=== PATIENT | male | born 1990 | race Caucasian/White ===

== ENCOUNTER 2019-06-19 09:44 | Inpatient (IN) ==
[2019-06-19] MEDS ORDERED: NS 1,000 ML IV ONE ×2 (10:25→14:05)
--- NOTE | 2019-06-19 10:25 | EKG Report ---
Test Performed on : 06/19/2019 09:57:00 AM Test Reason : tachycardia Blood Pressure : / mmHG Vent. Rate : 107 BPM Atrial Rate : 107 BPM P-R Int : 152 ms QRS Dur : 060 ms QT Int : 302 ms P-R-T Axes : 022 032 041 degrees QTc Int : 403 ms Sinus tachycardia. Otherwise normal ECG No previous ECGs available Unconfirmed Result
[2019-06-19 10:59] LABS: BASO# 0.03 X1000 (0.0-0.2); BASO% 0.3 % (0.0-0.8); EOS# 0.47 X1000 (0.0-0.7); EOS% 4.5 % (0.0-10.0); HEMATOCRIT 46.5 % (42.0-52.0); HEMOGLOBIN 16.2 g/dL (14.0-18.0); IMM GRAN# 0.04 X1000 (0.0-0.04); IMM GRAN% 0.4 % (0.0-0.5); LYMPH# 3.02 X1000 (1.2-3.4); LYMPH% 28.8 % (20.5-51.1); MCH 27.6 PG (27-31); MCHC 34.8 g/dL (33-37); MCV 79.4 FL (81-99); MONO# 0.76 X1000 (0.11-0.59); MONO% 7.3 % (1.7-9.3); MPV 10.6 FL (7.4-10.4); NEUT# 6.16 X1000 (1.4-6.5); NEUT% 58.7 % (42.2-75.2); PLT 229 X1000 (130-400); RBC 5.86 XMIL (4.7-6.1); RDW 13.2 % (11.5-14.5); WBC 10.48 X1000 (4.8-10.8)
--- NOTE | 2019-06-19 11:09 | Diag Imaging Result Doc PS360 ---
EXAM: CHEST-2 VIEWS HISTORY: Shortness of breath TECHNIQUE: Two views COMPARISON: None. FINDINGS: The lungs are well expanded. The heart is not enlarged. The vessels are not distended. There are no infiltrates. No pleural effusions. IMPRESSION: No acute abnormality. Electronically signed by Sundar Randall 06/19/2019 11:07 AM
[2019-06-19 11:51] LABS: AGAP 15; ALB/GLOB RATIO 1.8; ALBUMIN 4.7 g/dL (3.5-5.0); ALKALINE PHOSPHATASE 101 U/L (32-122); BUN 15 mg/dL (8-22); CALCIUM 10.4 mg/dL (8.8-10.2); CHLORIDE 96 mmol/L (98-107); COSMO 280; CREATININE 1.2 mg/dL (0.7-1.2); ESTIMATED GFR > 60; GLUCOSE 100 mg/dL (70-104); GOT 81 U/L (10-34); GPT 172 U/L (10-44); SODIUM 140 mmol/L (136-145); TCO2 29 mmol/L (25-35); TOTAL BILIRUBIN 0.56 mg/dL (0.20-1.00); TOTAL PROTEIN 7.3 g/dL (6.3-8.3)
--- NOTE | 2019-06-19 15:22 | PROVIDER DOCUMENTATION ---
This chart was entered by Jacey Huitron Scribe, acting as scribe for Keanu Weston MD. HPI-Chest Pain - General Chief Complaint: Chest Pain Stated Complaint: CP Time Seen by Provider: 06/19/19 10:09 Source: patient Allergies/Adverse Reactions: Patient Allergies Allergy/AdvReac Type Severity Reaction Status Date / Time Penicillins Allergy Unknown Verified 06/19/19 10:51 Home Medications: Home Medication List Medication Instructions Recorded Confirmed Last Taken Type NK [No Home Medications] 06/19/19 06/19/19 Unknown History - History of Present Illness-CP Nature of Presenting Problem: Patient is a 28 year old male who presents with chest pain. States shortness of breath, dizziness and nausea with chest pain. Reports symptoms started this morning at 0800. Denies abdominal pain, vomiting and sweats. History of HTN but does not take medications. Family history of heart disease and [place]. Denies history of DVT. No recent travel or surgery. Location: reports: central Chest Pain Radiation: reports: epigastric Quality of Pain: reports: pressure Severity in ED: mild Onset/Duration: this morning (0800) Timing: intermittent Associated Symptoms: reports: dizziness, nausea, shortness of breath. denies: diaphoresis, fever/chills Review of Systems - Adult - REVIEW OF SYSTEMS - ADULT Constitutional: reports: no symptoms reported. denies: fever Eyes: reports: no symptoms reported. denies: decreased vision, blurred vision, double vision Ears, Nose, Mouth & Throat: reports: no symptoms reported. denies: throat pain Cardiovascular: reports: see HPI, chest pain Respiratory: reports: cough, shortness of breath Gastrointestinal: reports: see HPI, nausea. denies: abdominal pain, vomiting Genitourinary: reports: no symptoms reported. denies: flank pain Musculoskeletal: reports: no symptoms reported. denies: back pain Integumentary: reports: no symptoms reported Neurological: reports: no symptoms reported. denies: headache/migraines Psychiatric: reports: no symptoms reported. denies: alcohol/drug dependence Endocrine: reports: no symptoms reported Hematologic/Lymphatic: reports: no symptoms reported. denies: other (no bleeding) Allergic/Immunologic: reports: no symptoms reported, other (no swelling) Past History - Adult - PAST MEDICAL HISTORY-ADULT Review of Records: reports: Old Records Reviewed (no records noted) Major Childhood Illnesses: reports: denies history Cardiovascular: reports: HTN Respiratory: reports: denies history Gastrointestinal: reports: denies history Obstetrical/Gynecological: reports: denies history Genitourinary: reports: denies history Musculoskeletal: reports: denies history Neurological: reports: Seizures/Epilepsy Endocrine/Immune: reports: denies history Other Conditions: reports: denies history - PRIOR SURGERIES/PROCEDURES Surgical/Procedure History: reports: cholecystectomy - IMMUNIZATION STATUS Childhood Immunizations: See Nurse Assessment Flu Vaccine: See Nurse Assessment - FAMILY HISTORY Family History: reviewed, not pertinent - SOCIAL HISTORY Smoking: denies Substance Use: denies Alcohol Use Frequency: never Physical Exam-General - PHYSICAL EXAM-ADULT Initial Vital Signs Reviewed: Yes - CONSTITUTIONAL General Appearance: appears well, alert, no apparent distress. negative: anxious, lethargic - EYES Eyes: negative: conjuctival exudate, sclera injected, scleral icterus - HEAD, EARS, NOSE, MOUTH & THROAT HENMT: normocephalic/atraumatic, moist mucous membranes, pharynx normal. negative: hearing deficit, pharyngeal erythema - NECK Neck: normal inspection. negative: other (mass) - RESPIRATORY Respiratory: lungs clear, no respiratory distress. negative: crackles, stridor, wheezing - CARDIOVASCULAR Cardiovascular: no gallop, tachycardia. negative: systolic murmur - GASTROINTESTINAL (ABDOMEN) Abdominal Exam: normal bowel sounds, non tender, soft. negative: guarding, rigid - MUSCULOSKELETAL Extremity: non-tender, normal inspection. negative: pedal edema - SKIN Integumentary: normal color, warm/dry. negative: diaphoresis - NEUROLOGIC Neurologic: grossly normal. negative: aphasia - PSYCHIATRIC Psych/Mental Status: normal mood/affect, normal thought content, normal thought process - HEART Score HEART Score: History: Moderately Suspicious HEART Score: ECG: Normal HEART Score: Age: < or = 45 Years HEART Score: Risk Factors for Atherosclerotic Disease: > or = 3 Risk Factors or History of Atherosclerotic Disease HEART Score: Troponin: < or = Normal Limit Total HEART Score:: 3 Progress - PLAN OF CARE/RESULTS Progress/Plan/Lab Results: Vital Signs - 8 hr 06/19/19 09:52 06/19/19 10:11 06/19/19 11:00 Temperature 98.1 F Pulse Rate 112 H 123 H 102 H Respiratory Rate 18 21 16 Blood Pressure 142/96 137/90 143/85 O2 Sat by Pulse Oximetry 96 100 100 06/19/19 11:30 06/19/19 12:00 06/19/19 12:30 Temperature Pulse Rate 91 H 115 H 99 H Respiratory Rate 20 18 18 Blood Pressure 138/81 134/89 142/89 O2 Sat by Pulse Oximetry 98 100 100 06/19/19 13:00 06/19/19 13:30 06/19/19 14:00 Temperature Pulse Rate 95 H 101 H 104 H Respiratory Rate 20 21 19 Blood Pressure 131/73 134/91 140/78 O2 Sat by Pulse Oximetry 97 100 98 06/19/19 10:36 Influenza Screen - Final Nasopharyngeal Laboratory Results - last 24 hr 06/19/19 06/19/19 06/19/19 10:42 10:42 10:42 WBC 10.48 RBC 5.86 Hgb 16.2 Hct 46.5 MCV 79.4 L MCH 27.6 MCHC 34.8 RDW Std Deviation 13.2 Plt Count 229 MPV 10.6 H Immature Gran % (Auto) 0.4 Neut % (Auto) 58.7 Lymph % (Auto) 28.8 [place] % (Auto) 7.3 Eos % (Auto) 4.5 Baso % (Auto) 0.3 Immature Gran # (Auto) 0.04 Neut # (Auto) 6.16 Lymph # (Auto) 3.02 [place] # (Auto) 0.76 H Eos # (Auto) 0.47 Baso # (Auto) 0.03 D-Dimer, Quantitative < 0.27 Sodium Potassium Chloride Carbon Dioxide Anion Gap BUN Creatinine Estimated GFR/1.73 m2 BUN/Creatinine Ratio Glucose Calculated Osmolality Calcium Total Bilirubin AST ALT Alkaline Phosphatase Troponin T < 0.010 Tyh-[id number]-Nfmlkgnjjwu Pept Total Protein Albumin Globulin Albumin/Globulin Ratio 06/19/19 06/19/19 10:42 10:42 WBC RBC Hgb Hct MCV MCH MCHC RDW Std Deviation Plt Count MPV Immature Gran % (Auto) Neut % (Auto) Lymph % (Auto) [place] % (Auto) Eos % (Auto) Baso % (Auto) Immature Gran # (Auto) Neut # (Auto) Lymph # (Auto) [place] # (Auto) Eos # (Auto) Baso # (Auto) D-Dimer, Quantitative Sodium 140 Potassium 4.0 Chloride 96 L Carbon Dioxide 29 Anion Gap 15 BUN 15 Creatinine 1.2 Estimated GFR/1.73 m2 > 60 BUN/Creatinine Ratio 13 Glucose 100 Calculated Osmolality 280 Calcium 10.4 H Total Bilirubin 0.56 AST 81 H ALT 172 H Alkaline Phosphatase 101 Troponin T Bnc-X-Shivqdfevvv Pept < 5 L Total Protein 7.3 Albumin 4.7 Globulin 2.6 Albumin/Globulin Ratio 1.8 Orders Category Date Time Status CHEST-2 VIEWS [RAD] Stat Exams 06/19/19 10:22 Completed BNP [PRO B-NATRIURETIC PEPTIDE] Stat Lab 06/19/19 10:42 Completed CBC WITH DIFF [HEME] Stat Lab 06/19/19 10:42 Completed CMP [COMPREHENSIVE METABOLIC PANEL] [CHEM] Stat Lab 06/19/19 10:42 Completed D-DIMER [COAG] Stat Lab 06/19/19 10:42 Completed HEPATITIS PROFILE [HH] Routine Lab 06/19/19 14:20 Ordered INFLUENZA SCREEN A/B Stat Lab 06/19/19 10:36 Completed TROPONIN T Stat Lab 06/19/19 10:42 Completed TROPONIN T Urgent Lab 06/19/19 14:19 Ordered URINALYSIS W/POSS RFLX CULT [URINALYSIS] Stat Lab 06/19/19 14:18 Uncollected URINE DRUG SCREEN Routine Lab 06/19/19 14:19 Uncollected 0.9% Sodium Chloride Inj [Ns] 1,000 ml Med 06/19/19 10:25 Discontinued IV 999 mls/hr 0.9% Sodium Chloride Inj [Ns] 1,000 ml Med 06/19/19 14:05 Discontinued IV 999 mls/hr EKG [EKG] Stat Ther 06/19/19 10:22 Draft Echo Spec/Color Doppler Stat Ther 06/19/19 14:11 Ordered Result Diagrams: 06/19/19 10:42 06/19/19 10:42 - REASSESSMENT Reassessment #1 Status: other (Scribe note updated/reviewed) Reassessment #2 Status: other (Given persistent chest pain and tachycardia as well as family hx of sudden cardiac as well as mother with hx of arrythmia, will plan to admit for cardiac evaluation. The family are agreeable to this. Discussed the case with the hospitalist who have accepted the patient.) - EKG 1 Time of EKG reading by physician:: 09:57 EKG Read and Signed by:: Shan Strange EKG Interpretation (*Must complete 3 of following elements*): Abnormal Rate: 107 Rhythm: sinus tachycardia Vidal: normal CA Interval: normal ST Wave: normal Comments: otherwise normal ECG - XRAY 1 XRAY Study: Chest Impression: See EMR Report ( EXAM: CHEST-2 VIEWS HISTORY: Shortness of breath TECHNIQUE: Two views COMPARISON: None. FINDINGS: The lungs are well expanded. The heart is not enlarged. The vessels are not distended. There are no infiltrates. No pleural effusions. IMPRESSION: No acute abnormality. Electronically signed by Sundar Randall 06/19/2019 11:07 AM 06/19/19 110 Interpreting Physician: Sundar Randall MD Dictated Date/Time: 06/19/191106 cc: Keanu Weston MD; None,PCP) Departure - Departure Date of Disposition Decision: 06/19/19 Time of Disposition Decision: 15:22 DIAGNOSIS: Shortness of breath, Sinus tachycardia Chest pain Qualifiers: Chest pain type: unspecified Qualified Code(s): R07.9 - Chest pain, unspecified Disposition: HOME 01 Certified Medical Emergency: Emergent Condition: Stable Additional Instructions: Please return to the ED for any new or worsening symptoms. Please follow up with your PCP, urgent care, or ER in the next 2-3 days Please follow up with the cardiology listed on your discharge paper work. ED Follow Up Instructions: You have been treated by a care provider in the Emergency Department. These inst ructions are being provided to you so you can have an understanding of how to care for yourself upon discharge. Upon discharge from the Emergency Department, you are responsible for making arrangements for follow-up care by a physician of your choice. Take all prescribed medications as directed. Return to the Emergency Department immediately for any new or worsening symptoms. You may call the Physician Referral phone number at [phone] to obtain a list of Physicians who are taking new patients. Referrals and Follow-Ups: None,PCP [Primary Care Provider] - Call for Appoint. 1-2days [facility] [NON-STAFF PROVIDER] - Discharge Education: Sinus Tachycardia - Critical Care Note This patient required my direct & personal management of CC.: No Attestation - Physician/ KEYON Attestation Patient care was provided by Advanced Practice Provider:: No The physician spent face to face time with patient:: Yes Advanced Practice Provider documentation review:: Supervising physician onsite and consulted in the evaluation and care of this patient. The physician did have a face to face encounter with the patient. This chart was documented by the indicated scribe, (Jacey Huitron Scribe) and accurately reflects the services I performed and decisions made by me, Keanu Isaac MD, as attested by the provider's signature.
[2019-06-19 15:34] LABS: BILIRUBIN URINE NEGATIVE (NEGATIVE); BLOOD URINE NEGATIVE (NEGATIVE); COLOR YELLOW; GLUCOSE URINE NEGATIVE (NEGATIVE); KETONE URINE NEGATIVE (NEGATIVE); LEUKOCYTES URINE NEGATIVE (NEGATIVE); NITRITE URINE NEGATIVE (NEGATIVE); PROTEIN URINE NEGATIVE (NEGATIVE); SP GRAVITY URINE 1.022; TURBIDITY URINE CLEAR (CLEAR); URINE SOURCE CLEAN CATCH; UROBILINOGEN URINE NORMAL (NORMAL)
[2019-06-19 15:42] LABS: UR EPITHELIAL CELLS <10 /HPF (<10); URINE BACTERIA NEGATIVE /HPF; URINE RBC <10 /HPF (<10); URINE WBC <10 /HPF (<10)
[2019-06-19 15:50] LABS: UR AMPHETAMINES QUAL NONE DETECTED (NONE DETECT); UR BARBITUATES QUAL NONE DETECTED (NONE DETECT); UR BENZODIAZEPIN QUAL NONE DETECTED (NONE DETECT); UR CANNABINOIDS QUAL NONE DETECTED (NONE DETECT); UR COCAINE QUAL NONE DETECTED (NONE DETECT); UR METHADONE QUAL NONE DETECTED (NONE DETECT); UR OPIATES QUAL NONE DETECTED (NONE DETECT); UR OXYCODONE QUAL NONE DETECTED (NONE DETECT); UR PCP QUAL NONE DETECTED (NONE DETECT)
[2019-06-19 16:29] LABS: URINE CASTS NONE SEEN; URINE CRYSTALS NONE SEEN; URINE SMALL ROUND CELLS NONE SEEN; URINE YEAST NONE SEEN
--- NOTE | 2019-06-19 16:39 | Diag Imaging Result Doc PS360 ---
EXAM: CT THORAX W/CONTRAST INDICATION: chest pain TECHNIQUE: This exam was performed using automated exposure control, adjustment of mA or kV according to patient size, and/or use of iterative reconstruction technique. COMPARISON: None. FINDINGS: The lungs are clear. No airspace consolidations are appreciated. There is no pleural fluid collection and no pneumothorax. There is no cardiomegaly. There are no abnormal mediastinal fluid collections. The aorta and main pulmonary arteries are unremarkable. There is no mediastinal or hilar lymphadenopathy. Limited views of the upper abdomen reveals diffuse hepatic steatosis. There is no evidence of acute osseous abnormality. IMPRESSION: 1.Incidental hepatic steatosis. 2.No evidence of acute chest pathology. Electronically signed by Castillo Huerta 06/19/2019 4:37 PM
[2019-06-19] MEDS ORDERED: ZOFRAN IV PRN (16:56)
[2019-06-19] MEDS ORDERED: TYLENOL PO PRN (16:56)
--- NOTE | 2019-06-19 19:04 | ECHO REPORT ---
ORDER DATE: 06/19/2019 INDICATION: Supraventricular tachycardia. Chest pain. Question of possible atrioseptal defect. M-MODE MEASUREMENTS: Left ventricle end diastole: 4.5. Left ventricle end systole: 2.7. Posterior wall: 1.0. Interventricular septum: 1.0. Left atrium: 3.7. Aortic diameter: 2.8. SUMMARY OF 2-DIMENSIONAL IMAGIN. The left ventricular function is normal. Ejection fraction of 65%. The right-sided chambers are normal. 2. The pulmonic valve looks normal. Color flow mapping unremarkable. 3. The aortic valve looks normal. Color flow mapping unremarkable. 4. The mitral valve looks normal. Color flow mapping unremarkable. 5. Pulsed wave Doppler of mitral inflow is normal. 6. Tissue Doppler of septal and lateral mitral annulus averages 14 cm. There is no diastolic dysfunction. 7. The atria appear to be normal. I do not see dilatation of the right-sided chambers. 8. The tricuspid valve is unremarkable. Color flow mapping shows no significant regurgitation. Pulmonary pressure is not elevated. 9. The patient received injection of agitated saline twice. There was no indication of shunting of bubbles from right to left. There is good opacification of right-sided chambers. 10.I do not see evidence of pericardial effusion, mass, and no thrombus. Clinical correlation is recommended. The study is normal. cc: Sanchez Cha MD
--- NOTE | 2019-06-19 21:44 | HISTORY AND PHYSICAL ---
PRIMARY CARE PROVIDER: None. CHIEF COMPLAINT: Chest pain. HISTORY OF PRESENT ILLNESS: Mr. Del Rio is a 28-year-old male who carries a past medical history of hypertension, seizures 2 years ago, who reported this morning around 8 a.m. he was at work at [employer]. He started having "pressure" in his chest that felt like a gas bubble. There was shortness of breath that was nonradiating. He felt like he had no energy. It slowed him down at work. There was some stomach pain associated with this, as well as some dizziness, but no diaphoresis. No nausea or vomiting. The pain lasted for about 30 minutes. It has since eased and it is now intermittent. He went to the nurse at his facility to be checked out. He was found to be tachycardic as well as hypertensive and was recommended to come to the ED to be evaluated. His first set of cardiac enzymes were negative. However, he reported a strong family history of coronary artery disease where people were early secondary to RI's as well as a mother who had some type of arrhythmia issue. He was unsure of what it was. He reports that she had many issues throughout her 20s and 30s and she went on a vegan diet and felt like she did not have any issues with it now, but does not think she has ever had a heart attack herself before. We did go ahead and check a stat echocardiogram on him. We do not have those results back yet. We are currently awaiting his 2nd troponin. He did have elevated liver enzymes. Chest CT did show incidental hepatic steatosis, but no evidence of acute chest pathology. He will be put in and ruled out with a stress test in the a.m. PAST MEDICAL HISTORY: 1. Hypertension. 2. Seizures. PAST SURGICAL HISTORY: Cholecystectomy. FAMILY HISTORY: Strong history of early deaths on his mother's side secondary to RI's with a grandfather as well as uncles in 60s and 50s. Mother with an arrhythmia issue. Father's side of the family had cancer, seizures and diabetes. SOCIAL HISTORY: He lives in [place], [place]. He works at [employer]. No tobacco, alcohol or illicit drug use. HOME MEDICATIONS: None. ALLERGIES: Allergy to penicillin, unknown reaction. PHYSICAL EXAMINATION: VITAL SIGNS: Temperature is 98.1 degrees, heart rate 96, respirations 23, blood pressure 114/85, O2 is 96% on room air. GENERAL: Mr. Del Rio is a pleasant 28-year-old male who is lying in bed in no acute distress. HEENT: Atraumatic, normocephalic. PERRL. NECK: Supple trachea midline. CARDIOVASCULAR: S1, S2 appreciated. No murmurs, gallops, rubs noted. RESPIRATORY: Lung sounds clear bilaterally. GI: Is soft, nontender, nondistended. Positive bowel sounds 4 quadrants. EXTREMITIES: Lower extremities negative for edema. NEUROLOGIC: No focal deficits noted. DIAGNOSTIC DATA: Chest CT: Incidental hepatic steatosis. No evidence of acute chest pathology. Chest x-ray: No acute abnormality. EKG: Sinus tachycardia at 107 beats per minute. LABORATORY DATA: White count 10, hemoglobin and hematocrit 16 and 46, platelet count 229,000. Sodium 140, potassium 4.0, BUN 15, creatinine 1.2, blood glucose is 100, calcium 10.4. AST 81, ALT 172, alkaline phosphatase 101. Troponin less than 0.010, proBNP less than 5. D-dimer less than 0.27. Urinalysis is negative. Drug screen negative. ASSESSMENT AND PLAN: 1. Chest pain rule out. First set of cardiac enzymes are negative. We will continue to trend. We have checked an echocardiogram. We will do lipid profile. Continue to trend his cardiac enzymes. We will make him NPO after midnight. Stress test in the morning. Repeat an EKG in the a.m.. Healthy heart diet. 2. Transaminitis. He does show some incidental hepatic steatosis on his CT of his chest. We will rule out with a hepatitis profile as well as a right upper quadrant ultrasound in the a.m. He denies any drug use. 3. Morbid obesity with a body mass index of 40.9. Need continued education on diet and exercise, especially with family history of coronary artery disease and early . 4. Hypertension. Currently not on any home medications. 5. Initially sinus tachycardia that has since resolved. 6. Seizures. Patient does not take any medication for this. He has not had a seizure in 2 years. 7. Further recommendation to follow physician evaluation, laboratory and diagnostic data. Dictated by MATTHEW Booth for Marlon Suarez MD Addendum: Patient seen and examined by myself. Agree with MATTHEW note. It reflects my assessment and plan. Patient is being admitted to hospital for chest pain. He has strong family history of CAD so will order an echocardiogram and Lexiscan and will go from there. Will monitor patient closely and trend cardiac enzymes. cc: Marlon Suarez MD MTDD
[2019-06-20] MEDS ORDERED: PRILOSEC PO SCH (07:00)
--- NOTE | 2019-06-20 08:01 | EKG Report ---
Test Performed on : 06/20/2019 07:45:32 AM Test Reason : CP Blood Pressure : / mmHG Vent. Rate : 090 BPM Atrial Rate : 090 BPM P-R Int : 158 ms QRS Dur : 068 ms QT Int : 356 ms P-R-T Axes : 022 029 036 degrees QTc Int : 435 ms Normal sinus rhythm. Normal ECG When compared with ECG of 19-JUN-2019 09:57, (Unconfirmed) No significant change was found Confirmed by Adan BEST, Rayray Wilkins ([id number]) on 06/21/2019 10:19:55 AM
[2019-06-20 09:00] LABS: AGAP 16; ALB/GLOB RATIO 1.4; ALBUMIN 4.2 g/dL (3.5-5.0); ALKALINE PHOSPHATASE 89 U/L (32-122); BUN 21 mg/dL (8-22); CALCIUM 9.4 mg/dL (8.8-10.2); CHLORIDE 98 mmol/L (98-107); CHOLESTEROL 193 mg/dL (0-200); COSMO 278; CREATININE 1.1 mg/dL (0.7-1.2); ESTIMATED GFR > 60; GLUCOSE 84 mg/dL (70-104); GOT 79 U/L (10-34); GPT 138 U/L (10-44); HDL 44 mg/dL (35-55); LDL 122 mg/dL; MAGNESIUM 2.1 mg/dL (1.5-2.7); SODIUM 138 mmol/L (136-145); TCO2 24 mmol/L (25-35); TOTAL BILIRUBIN 0.66 mg/dL (0.20-1.00); TOTAL PROTEIN 7.1 g/dL (6.3-8.3); TRIGLYCERIDES 137 mg/dL (39-160); VLDL 27 mg/dL
[2019-06-20] MEDS ORDERED: ASPIRIN PO SCH (09:00)
--- NOTE | 2019-06-20 09:06 | Diag Imaging Result Doc PS360 ---
EXAM: US GB < RUQ (LIMITED) INDICATION: elevated lfts COMPARISON: None. FINDINGS: Note that this study is very limited due to body habitus. There has been a prior cholecystectomy. The common bile duct diameter is at the upper limit of normal measuring 7 mm in diameter. This may be due to postcholecystectomy status, however. The echotexture of the liver is diffusely increased suggesting hepatic steatosis. The portal vein is patent. The pancreas is largely obscured. The aorta and IVC are obscured. The right kidney is grossly unremarkable. IMPRESSION: 1.Very limited study due to body habitus. 2.Hepatic steatosis. 3.No definite acute pathology, otherwise. Electronically signed by Castillo Huerta 06/20/2019 9:03 AM
[2019-06-20 09:50] LABS: HEMOGLOBIN A1C 5.6 % (4.8-6.0)
--- NOTE | 2019-06-20 10:51 | PROGRESS NOTE ---
DATE: 06/20/2019 SUBJECTIVE: The patient reports on and off chest pain, suprasternal, that lasts less than a minute. OBJECTIVE: Vital Signs: Temperature 97.6 degrees, heart rate 92, respiratory rate 16, blood pressure 134/71, O2 saturation 98% on room air. General: This is a 28-year-old, morbidly obese, male, lying in bed in no acute distress. Cardiovascular: S1, S2 heard. No murmurs, gallops, or rubs. Regular rate and rhythm. Respiratory: Clear bilaterally to auscultation. No work of breathing or using accessory muscles. Abdomen: Soft, nontender to palpation. Bowel sounds present. No organomegaly. Extremities: No clubbing, cyanosis, or edema. Peripheral pulses present in both legs. Neurological: The patient is alert and oriented x3. Moves all 4 extremities. LABORATORY DATA: Reviewed. IMAGING: CT of the chest and echocardiogram were unremarkable. ASSESSMENT AND PLAN: 1. Chest pain. Because of strong family history of heart disease, this patient has been admitted to the hospital. So far, echocardiogram and CT of the chest have been normal. Will do a Lexiscan stress test this morning. Will see what it shows. I think if it is normal, it will be reasonable to discharge him. 2. Transaminitis, most likely related to hepatic steatosis. Will continue to monitor. 3. Morbid obesity. Noted. Body mass index of 40.9. 4. Hypertension. The patient is not on any blood pressure medication. Blood pressure has been in the range of 120s and 130s. Will continue to monitor. 5. Disposition. I think if this patient has a normal Lexiscan, he can be discharged. cc: Marlon Suarez MD
[2019-06-20 12:42] LABS: HEPATITIS PROFILE ACUTE SEE COMMENTS
--- NOTE | 2019-06-20 14:02 | Diag Imaging Result Document ---
PROCEDURE NAME: MYOCARDIAL PERF SCAN, STR/REST - 06/19/2019 SUMMARY: The patient was administered 15.2 mCi of technetium-99m sestamibi, after which resting cardiac images were obtained. The patient was subsequently exercised on a treadmill according to a Blair protocol, and exercised for a total of 7 minutes, achieving a maximum workload of stage III and 8.5 METS. With exercise, the heart increased from 100 beats per minute to 187 beats per minute, while the blood pressure went from 136/77 to 164/82. The patient achieved 97% of maximum age-predicted heart rate. With exercise, the patient denied chest discomfort. At peak exercise, the patient was administered 40.9 mCi of technetium-99m sestamibi, after which gated stress cardiac images were obtained. Baseline ECG demonstrated sinus rhythm and rightward axis. Mild nonspecific T-wave abnormalities were demonstrated. With exercise, there were no diagnostic ST-segment changes. SPECT images were reconstructed in the short, horizontal, and vertical long axis. Review of these images demonstrated homogeneous uptake of radiopharmaceutical on both stress and resting images. Gated images demonstrate a calculated left ventricular ejection fraction of 89% with symmetrical wall motion/thickening. CONCLUSIONS: 1. Fair aerobic capacity for age. Target heart rate achieved. 2. Clinically negative for chest pain. 3. Electrocardiographically negative for exercise-induced myocardial ischemia. 4. Normal exercise sestamibi images. cc: MD Marlon Ceballos MD
[2019-06-20 16:30] VITALS: BP 135/81
--- NOTE | 2019-06-21 14:46 | DISCHARGE SUMMARY ---
ADMISSION DATE: 06/19/2019 DISCHARGE DATE: 06/20/2019 DISCHARGE DIAGNOSES: 1. Chest pain. Rule out acute coronary syndrome. 2. Transaminitis. 3. Morbid obesity. 4. Hypertension. Not treated. 5. Seizure disorder. PROCEDURES: 1. Chest x-ray done on admission showed no acute abnormality. 2. Echocardiogram and Doppler showed ejection fraction of 65%. No grossly valvular abnormality and no evidence of pericardial effusion, mass or thrombosis. 3. Chest CT showed incidental hepatic steatosis, but no evidence of acute chest pathology. 4. Abdominal ultrasound showed hepatic steatosis. No definite acute pathology otherwise. 5. Myocardial perfusion test. Nuclear Medicine showed normal exercise sestamibi imaging, electrocardiographically negative for exercise-induced myocardial ischemia. HOSPITAL COURSE: In brief, this is a 28-year-old male with past medical history of untreated hypertension, seizures 2 years ago, who this morning started complaining of some sensation of chest pressure that was going on for a few days. She has a strong family history of every on mother's side with ID's as well as grandfather. Because that pain also was getting worse with exercise, that is the reason why we will finally admit this patient to the hospital for chest pain workup. All the results above, including the Lexiscan, so patient was not complaining of any more chest pain, so she is going to be discharged in stable condition. DISCHARGE PHYSICAL EXAM: Vitals: Temperature 97.6 degrees, heart rate 100, respiratory 17, blood pressure 135/81, O2 saturation 99% on room air. General examination: This is a morbidly obese, 28-year-old male, lying in bed in no acute distress. HEENT: Head is normocephalic, atraumatic. Neck: No JVD noted. No carotid bruits. No lymphadenopathy. No thyromegaly. Cardiovascular exam: S1, S2 heard. No murmurs, gallops, or rubs. Regular rate and rhythm. Respiratory exam: Clear bilaterally to auscultation. No work of breathing or using accessory muscles. Abdomen: Soft, nontender to palpation. Bowel sounds present. No organomegaly. Extremities: No clubbing, cyanosis, or edema. Peripheral pulses present in both legs. Neurological exam: The patient is alert and oriented x3. Moves 4 extremities. DISCHARGE DISPOSITION: Home to self-care. LIST OF MEDICATIONS: We are not adding any blood pressure medication because during much of her stay in hospital, blood pressure has been between 120s and 130s. cc: Marlon Suarez MD
== END 2019-06-20 18:48 | disposition home or self-care (01) | DRG 313 ==
LOC: ED 09:44 → 3N 16:55
PROVIDERS: ATTEND Internal Medicine